=== PATIENT | female | born 1945 | race Caucasian/White ===

== ENCOUNTER 2021-02-07 16:54 | Emergency (ER) | payer MEDICARE ==
[2021-02-08 13:54] LABS: SARS-CoV-2 PCR by NAA Not Detected (NotDetected)
== END 2021-02-07 17:20 | disposition home or self-care (01) ==
LOC: NAV ERS 16:54
DX: Z20.822 Contact with and (suspected) exposure to COVID-19 (principal); I10 Essential (primary) hypertension; E10.9 Type 1 diabetes mellitus without complications
CPT/HCPCS: 99283; U0003; U0005